=== PATIENT | female | born 1985 | race Caucasian/White ===

== ENCOUNTER 2025-01-03 06:58 | Outpatient (CLI) | payer OTHER, SELFPAY ==
--- NOTE | 2025-01-03 07:15 | CRLHL7_ITS ---
For Patients: As a result of the Century Cures Act, medical imaging exams and procedure reports are released immediately into your electronic medical record. You may view this report before your referring provider. If you have questions, please contact your health care provider. INDICATION: Dating and viability. TECHNIQUE: Ultrasound OB pelvis transabdominal and transvaginal. Real-time alvarado-scale imaging of the pelvis was performed. COMPARISON: None. FINDINGS: There is a single intrauterine gestation. The embryo demonstrates a regular cardiac rate measuring 178 beats per minute. The embryo`s crown rump length measurement of 2.8 cm corresponds to a gestational age of 9 weeks 4 days with a sonographic due date of 08/04/2025. There is a normal appearing yolk sac. There are no gross abnormalities noted within the embryo at this early state of development. The placenta has not yet developed. There is no sign of perigestational hemorrhage. The ovaries are of normal size. There are no suspicious fluid collections noted in the cul-de-sac. IMPRESSION: Single viable intrauterine measuring 9 weeks 4 days. No abnormalities seen. Dictated by Fredis Orosco MD @ 01/03/2025 11:53:36 AM (Electronically Signed)
== END 2025-01-03 06:59 | disposition home or self-care (01) ==
PROVIDERS: Visit Provider Advanced Practice Midwife
DX: Z34.91 Encounter for supervision of normal pregnancy, unspecified, first trimester (principal); Z3A.09 9 weeks gestation of pregnancy
CPT/HCPCS: 76801; 76817; T1013

== ENCOUNTER 2025-01-03 08:33 | Outpatient (CLI) | payer OTHER, SELFPAY ==
[2025-01-03 15:52] LABS: Chlamydia DNA Amplified* NOT DETECTED (No Detected); GC DNA Amplified* NOT DETECTED (No Detected)
== END 2025-01-03 08:34 | disposition home or self-care (01) ==
PROVIDERS: Visit Provider Advanced Practice Midwife
DX: O09.521 Supervision of elderly multigravida, first trimester (principal); Z3A.09 9 weeks gestation of pregnancy
CPT/HCPCS: 83020; 83021; 85660; 86592; 86703; 86704; 86706; 86762; 86787; 86803; 86850; 86900; 86901; 87086; 87340; 87491; 87591

== ENCOUNTER 2025-01-29 10:37 | Outpatient (CLI) | payer OTHER, SELFPAY | END 2025-01-29 10:38 | disposition home or self-care (01) | LOC: NFLDREF 02-02 07:39 | PROVIDERS: Visit Provider Obstetrics & Gynecology | DX: O99.891 Other specified diseases and conditions complicating pregnancy (principal); R82.71 Bacteriuria; O99.011 Anemia complicating pregnancy, first trimester; Z3A.12 12 weeks gestation of pregnancy | CPT/HCPCS: 87086 ==

== ENCOUNTER 2025-03-01 13:07 | Outpatient (CLI) | payer MEDICAID, SELFPAY | END 2025-03-01 13:08 | disposition home or self-care (01) | PROVIDERS: Visit Provider Obstetrics & Gynecology | DX: R82.71 Bacteriuria (principal); B96.20 Unspecified Escherichia coli [E. coli] as the cause of diseases classified elsewhere | CPT/HCPCS: 87086 ==

== ENCOUNTER 2025-03-14 10:13 | Outpatient (CLI) | payer OTHER, SELFPAY | END 2025-03-14 10:14 | disposition home or self-care (01) | LOC: US 10:13 | PROVIDERS: Visit Provider Obstetrics & Gynecology | DX: O09.522 Supervision of elderly multigravida, second trimester (principal); Z3A.19 19 weeks gestation of pregnancy | CPT/HCPCS: 76811; T1013 ==

== ENCOUNTER 2025-03-21 11:22 | Outpatient (CLI) | payer MEDICAID, SELFPAY | END 2025-03-21 11:23 | disposition home or self-care (01) | LOC: NFLDREF 03-23 15:18 | PROVIDERS: Visit Provider Obstetrics & Gynecology | DX: O99.891 Other specified diseases and conditions complicating pregnancy (principal); R82.71 Bacteriuria; Z3A.19 19 weeks gestation of pregnancy | CPT/HCPCS: 87086 ==

== ENCOUNTER 2025-04-11 13:50 | Outpatient (CLI) | payer MEDICAID, SELFPAY | END 2025-04-11 13:51 | disposition home or self-care (01) | LOC: NFLDREF 13:51 | PROVIDERS: Visit Provider Obstetrics & Gynecology | DX: Z34.92 Encounter for supervision of normal pregnancy, unspecified, second trimester (principal); Z3A.23 23 weeks gestation of pregnancy | CPT/HCPCS: 87086 ==

== ENCOUNTER 2025-05-16 09:05 | Outpatient (CLI) | payer MEDICAID, SELFPAY ==
--- NOTE | 2025-05-16 09:15 | CRLHL7_ITS ---
For Patients: As a result of the Century Cures Act, medical imaging exams and procedure reports are released immediately into your electronic medical record. You may view this report before your referring provider. If you have questions, please contact your health care provider. OB ULTRASOUND FOLLOW-UP/LIMITED, 05/16/2025 CLINICAL HISTORY: Marginal cord insertion. COMPARISON: 03/14/2025. TECHNIQUE: Real time alvarado scale imaging of the fetus was performed. Transabdominal imaging performed. FINDINGS: LMP: 10/31/2024. DARIANA by LMP: 08/07/2025. GA: 28 weeks 1 day. Sonographic age is 29 weeks 1 day. DARIANA 07/31/2025. Gestation: Single. Cervix: Not visualized, positioning: Vertex. Amniotic fluid: 25.6 cm FAISAL reflecting polyhydramnios. 8.6 cm SDP. Placenta: Technique: TA. Placenta position: Anterior. Dopplers: heart rate: 130 bpm . BIOMETRY: BPD: 7.2 cm, 29 weeks 1 day. 69% HC: 26.8 cm, 29 weeks 2 days. 53% AC: 26.7 cm, 30 weeks 6 days. >97% FL: 5.0 cm, 27 weeks 0 days. 11% FL/AC Ratio: 18.86% HC/AC Ratio: 1.00. EFW: 1379 g, 3 lb 1 oz. age by this US: 29 weeks 1 day. DARIANA by this US: 07/31/2025. Percentile by DARIANA: 82% IMPRESSION: 1. Single live intrauterine gestation at 29 weeks 1 day. DARIANA 07/31/2025. Estimated weight is 1379 grams which lies at the 82nd percentile. AC is at >97%. 2. Polyhydramnios with FAISAL of 25.6. Single deepest pocket 8.6 cm. Jaimie Larson M.D. Diagnostic/Breast Radiologist [email or web address] Transcribed: 2:22 pm DW/Dictated by: Jaimie Larson MD @ 05/18/2025 1:42:00 PM (Electronically Signed)
== END 2025-05-16 09:06 | disposition home or self-care (01) ==
LOC: US 09:05
PROVIDERS: Visit Provider Obstetrics & Gynecology
DX: O09.523 Supervision of elderly multigravida, third trimester (principal); O43.193 Other malformation of placenta, third trimester; O99.013 Anemia complicating pregnancy, third trimester; Z3A.28 28 weeks gestation of pregnancy
CPT/HCPCS: 76816; 82728; 86592; T1013

== ENCOUNTER 2025-05-16 09:25 | Outpatient (CLI) | payer MEDICAID, SELFPAY | END 2025-05-16 09:26 | disposition home or self-care (01) | LOC: NFLDREF 09:26 | PROVIDERS: Visit Provider Obstetrics & Gynecology | DX: O99.013 Anemia complicating pregnancy, third trimester (principal); O40.9XX0 Polyhydramnios, unspecified trimester, not applicable or unspecified; O09.529 Supervision of elderly multigravida, unspecified trimester; O43.193 Other malformation of placenta, third trimester; Z3A.28 28 weeks gestation of pregnancy | CPT/HCPCS: 82728; 86592 ==

== ENCOUNTER 2025-05-28 08:00 | Outpatient (RCR) | payer MEDICAID, SELFPAY ==
[2025-03-28 11:12] VITALS: BP 106/69; PULSE 93; TEMP 36.4; O2SAT 100
[2025-03-28] MEDS: SODIUM CHLORIDE 0.9 % (FLUSH) 10 ML SYRINGE IVF (11:50)
[2025-03-28] MEDS: cefTRIAXone 1 GM in 0.9 % SODIUM CHLORIDE Mini-bag 100 ML IVPB (11:53)
[2025-03-29 11:18] VITALS: BP 108/71; PULSE 89; TEMP 36.4; O2SAT 99
[2025-03-29] MEDS: cefTRIAXone 1 GM in 0.9 % SODIUM CHLORIDE Mini-bag 100 ML IVPB (11:47)
[2025-03-30 10:29] VITALS: BP 113/68; PULSE 93; TEMP 36; O2SAT 100
[2025-03-30] MEDS: cefTRIAXone 1 GM in 0.9 % SODIUM CHLORIDE Mini-bag 100 ML IVPB (10:55)
[2025-03-30] MEDS: SODIUM CHLORIDE 0.9 % (FLUSH) 10 ML SYRINGE IVF (10:55)
[2025-03-31] MEDS: cefTRIAXone 1 GM in 0.9 % SODIUM CHLORIDE Mini-bag 100 ML IVPB (11:19)
[2025-03-31 11:28] VITALS: BP 113/71; PULSE 94; RESP 16; O2SAT 98
--- NOTE | 2025-03-31 12:03 | PC.NURSE ---
IV started in right AC. Infusion complete without complication. Due to pt work pt request IV be removed after each infusion. IV DC'd, cath tip intact. Pt will return to m/s for infusion on 04/01 @0900. DC'd @ 1202
[2025-04-01] MEDS: cefTRIAXone 1 GM in 0.9 % SODIUM CHLORIDE Mini-bag 100 ML IVPB (09:38)
[2025-04-01] MEDS: SODIUM CHLORIDE 0.9 % (FLUSH) 10 ML SYRINGE IVF (09:39)
[2025-04-01 09:45] VITALS: BP 114/68; PULSE 78; RESP 18; TEMP 36.7
[2025-04-02] MEDS: SODIUM CHLORIDE 0.9 % (FLUSH) 10 ML SYRINGE IVF (09:38)
[2025-04-02 10:24] VITALS: BP 116/77; PULSE 90; RESP 16; TEMP 36.6; O2SAT 100
[2025-04-02] MEDS: cefTRIAXone 1 GM in 0.9 % SODIUM CHLORIDE Mini-bag 100 ML IVPB (11:01)
[2025-04-03 09:49] VITALS: BP 112/71; PULSE 99; RESP 17; TEMP 36.3; O2SAT 100
[2025-04-03] MEDS: cefTRIAXone 1 GM in 0.9 % SODIUM CHLORIDE Mini-bag 100 ML IVPB (10:01)
[2025-04-03] MEDS: SODIUM CHLORIDE 0.9 % (FLUSH) 10 ML SYRINGE IVF (10:01)
--- NOTE | 2025-05-17 11:55 | ONC.NURNOTE ---
Dx: Iron deficiency in anemia.
[2025-05-28 07:59] VITALS: BP 107/70; PULSE 100; RESP 18; TEMP 36.3; O2SAT 99
[2025-05-28] MEDS: SODIUM CHLORIDE 0.9 % (FLUSH) 10 ML SYRINGE IVF (08:35)
[2025-05-28] MEDS: IRON DEXTRAN COMPLEX 25 MG in 0.9 % SODIUM CHLORIDE 100 ml 100 ML 402 MG IVPB (08:38)
[2025-05-28 08:55] VITALS: BP 113/73; PULSE 97; RESP 18; O2SAT 100
[2025-05-28] MEDS: IRON DEXTRAN COMPLEX 975 MG in 0.9 % SODIUM CHLORIDE 250 ml 250 ML 270 MG IVPB (09:53)
[2025-05-28 11:33] VITALS: BP 115/74; PULSE 93; RESP 18; O2SAT 98
== END 2025-09-24 23:59 | disposition home or self-care (01) ==
LOC: CCIC 08:00
PROVIDERS: Visit Provider Clinical Nurse Specialist
DX: O99.013 Anemia complicating pregnancy, third trimester (principal); D50.9 Iron deficiency anemia, unspecified
CPT/HCPCS: 96365; G0463; T1013; J0696; J1750; J7050

== ENCOUNTER 2025-05-30 11:38 | Outpatient (CLI) | payer MEDICAID, SELFPAY ==
--- NOTE | 2025-05-30 11:45 | CRLHL7_ITS ---
For Patients: As a result of the Cures Act, medical imaging exams and procedure reports are released immediately into your electronic medical record. You may view this report before your referring provider. If you have questions, please contact your health care provider. OB ULTRASOUND BIOPHYSICAL PROFILE, 05/30/2025 CLINICAL HISTORY: Polyhydramnios. COMPARISON: 05/16/2025, 03/14/2025, 01/03/2025. TECHNIQUE: Real time alvarado scale imaging of the fetus was performed. Transabdominal imaging performed. FINDINGS: DARIANA by LMP: 08/07/2025. GA: 30 weeks 1 day. Cervix: Not visualized. Amniotic Fluid: 30.3 cm FAISAL. 11 cm SDP. BIOPHYSICAL PROFILE: Gross Body Movements: 2 Tone: 2 Respiratory activity: 2 Amniotic Fluid SDP: 2 Total Score: 8 Placenta: Technique: TA. Placenta Position: Anterior. Dopplers: Heart Rate: 142 bpm. IMPRESSION: Normal biophysical profile score of 8/8. Sahil Borrego M.D. Diagnostic Radiologist [email or web address] Transcribed: 12:34 pm DW/Dictated by: Sahil Borrego MD @ 05/30/2025 12:22:00 PM (Electronically Signed)
== END 2025-05-30 11:39 | disposition home or self-care (01) ==
LOC: US 11:38
PROVIDERS: Visit Provider Obstetrics & Gynecology
DX: O40.3XX0 Polyhydramnios, third trimester, not applicable or unspecified (principal); Z3A.30 30 weeks gestation of pregnancy
CPT/HCPCS: 76819; T1013

== ENCOUNTER 2025-06-12 09:06 | Outpatient (CLI) | payer MEDICAID, SELFPAY ==
--- NOTE | 2025-06-12 09:15 | CRLHL7_ITS ---
For Patients: As a result of the Century Cures Act, medical imaging exams and procedure reports are released immediately into your electronic medical record. You may view this report before your referring provider. If you have questions, please contact your health care provider. OB ULTRASOUND BIOPHYSICAL PROFILE TRANSABDOMINAL LMP: 10/31/2024. DARIANA by LMP: 08/07/2025. GA: 32 w, 0 d. Single. Comparison: 05/30/2025. INDICATION: Polyhydramnios, marginal cord insertion. TECHNIQUE: Real time alvarado scale imaging of the fetus was performed. Transabdominal imaging performed. CERVIX: Not visualized. POSITIONING: Vertex. AMNIOTIC FLUID: 25.5 cm. FAISAL. 8.6 cm SDP (N: greater than 2 x 1 cm) BIOPHYSICAL PROFILE: Gross body movements: 2. tone: 2. Respiratory activity: 2. Amniotic fluid: 2. SDP (N: greater than 2 x 1 cm). Total score: 8. PLACENTA: Technique: Transabdominal. PLACENTA POSITION: Anterior, left wall. DOPPLER: heart rate: 141 bpm. IMPRESSION: 1. Biophysical profile 88. 2. Amniotic fluid single deepest pocket 8.6 cm. FAISAL 25.5 cm. Sahil Borrego M.D. Diagnostic Radiologist [email or web address] SP/Dictated by: Sahil Borrego MD @ 06/13/2025 5:25:00 PM (Electronically Signed)
== END 2025-06-12 09:07 | disposition home or self-care (01) ==
LOC: US 09:07
PROVIDERS: Visit Provider Obstetrics & Gynecology
DX: O40.3XX0 Polyhydramnios, third trimester, not applicable or unspecified (principal); O43.193 Other malformation of placenta, third trimester; O09.523 Supervision of elderly multigravida, third trimester; Z3A.32 32 weeks gestation of pregnancy
CPT/HCPCS: 76819; T1013

== ENCOUNTER 2025-06-27 10:45 | Outpatient (CLI) | payer MEDICAID, SELFPAY | END 2025-06-27 10:46 | disposition home or self-care (01) | LOC: NFLDREF 07-02 21:12 | PROVIDERS: Visit Provider Obstetrics & Gynecology | DX: O99.013 Anemia complicating pregnancy, third trimester (principal); O09.523 Supervision of elderly multigravida, third trimester; O36.63X0 Maternal care for excessive fetal growth, third trimester, not applicable or unspecified; Z3A.36 36 weeks gestation of pregnancy | CPT/HCPCS: 76816; 76819; 82728; T1013 ==

== ENCOUNTER 2025-07-11 10:26 | Outpatient (CLI) | payer MEDICAID, SELFPAY | END 2025-07-11 10:27 | disposition home or self-care (01) | LOC: NFLDREF 07-17 16:19 | PROVIDERS: Visit Provider Obstetrics & Gynecology | DX: O99.013 Anemia complicating pregnancy, third trimester (principal) | CPT/HCPCS: 76819; 82728; 87081; 87653; T1013 ==

== ENCOUNTER 2025-07-18 10:04 | Outpatient (CLI) | payer MEDICAID, SELFPAY ==
--- NOTE | 2025-07-18 10:15 | CRLHL7_ITS ---
For Patients: As a result of the Cures Act, medical imaging exams and procedure reports are released immediately into your electronic medical record. You may view this report before your referring provider. If you have questions, please contact your health care provider. OBSTETRICAL ULTRASOUND ??? BIOPHYSICAL PROFILE, 07/18/2025 INDICATION: Advance maternal age and history of mild polyhydramnios. CLINICAL HISTORY: LMP: 10/31/2024 DARIANA by LMP: 08/07/2025 Gestational Age: 37 weeks 1 day PRIOR ULTRASOUND: 07/11/2025, 06/27/2025, 06/12/2025. TECHNIQUE: Real-time alvarado-scale transabdominal imaging of the fetus was performed. FINDINGS: Fetus: Single Cervix: Not visualized positioning: Vertex Amniotic Fluid: FAISAL: 21.2 cm 6.5 cm SDP BIOPHYSICAL PROFILE: Gross body movements: 2 tone: 2 Respiratory activity: 2 Amniotic fluid SDP: 2 Total score: 8 Placenta technique: Transabdominal Placenta position: Anterior, left wall heart rate: 130 bpm IMPRESSION: 1. Normal biophysical profile score of 8/8. 2. Amniotic fluid single deepest pocket is 6.5 cm. FAISAL is 21.2 cm. 3. Umbilical cord knot is noted. SAHIL MYERS M.D. Diagnostic Radiologist [email or web address] Transcribed: 4:[address]/Dictated by: Sahil Myers MD @ 07/18/2025 3:08:00 PM (Electronically Signed)
== END 2025-07-18 10:05 | disposition home or self-care (01) ==
LOC: US 10:05
PROVIDERS: Visit Provider Obstetrics & Gynecology
DX: O09.523 Supervision of elderly multigravida, third trimester (principal); O40.3XX0 Polyhydramnios, third trimester, not applicable or unspecified; Z3A.37 37 weeks gestation of pregnancy
CPT/HCPCS: 76819; T1013

== ENCOUNTER 2025-07-26 05:56 | Inpatient (IN) | payer MEDICAID, SELFPAY ==
[2025-07-26] VITALS (16 sets, daily range): BP systolic 91–122; BP diastolic 35–75; PULSE 74–94; RESP 16–20; TEMP 36.5–36.6; O2SAT 95–99
[2025-07-26 06:53] LABS: Hemoglobin* 9.7 gm/dL (12.0-16.0)
[2025-07-26] MEDS: LACTATED RINGERS 1000 ML 1,000 ML IV (07:01)
--- NOTE | 2025-07-26 07:06 | P.LDBA_ITS ---
Subjective History of Present Illness Date Seen: 07/26/25 Narrative: Patient is being admitted to Labor and Delivery for repeat . She is a 39 year old at 38 2/7 weeks gestation. Her full history and physical was dictated by Dr. Carpio on 07/11/25. Please see this for details. Specific Issues/Plans Partner: Mara Richmond Son: Ed Daughter: Leda Baby: Boy! H&P done by Dr. Carpio on 07/11/25. Consent done on 07/18/25. #Mild polyhydramnios * 05/16/25 FAISAL 25.6. SDP 8.6cm. EFW: 82%, AC >97%. * Repeat FAISAL w/ bpp in Q2 weeks * Growth A1nerre #Anemia * Hgb 10.7 on 01/03/25-recommended iron in PNV and iron rich foods * Prescribed vitron C on 01/29/25 QOD w/ food. The patient is on gummie vitamins that do not contain iron. Patient intolerant of oral iron due to constipation. * 28 wk hgb: 7.7 * s/p Iron infusion therapy. * Hgb at 34 weeks: 9.6 # Marginal cord insertion * Placental location, cord insertion site and EFW at 28 wks (05/16/25) and 34 wks (06/27/25). testing form completed 03/15/25. * If cord insertion becomes velamentous then EFW Q4 weeks. # Advanced maternal age?- 39 years old at delivery? Genetic Screening: NIPT with gender: low risk for aneuploidy, boy ? 20-week Level II detailed ultrasound with MFM: 03/14/2025? Weekly testing starting at 36 weeks. Scheduled. ? Delivery will be at 38+ weeks by RLTCS due to window in the LALA @ her 2nd .? #Asymptomatic Bacteruria at NOB 01/03/25: UCx >100,000 cfu/mL e. coli: resistant to ampicillin, cefazolin and bactrim. Tx'd with Macrobid bid for 7days. -STEVE 01/29/25 (12 weeks)- e. coli >100,000 cfu/mL: resistent to ampicillin, cefazolin and bactrim. Tx's w/ macrobid 100mg PO BID for 7 days. -STEVE at 16wks 03/01/25: > 100 CFU of 2 strains of E. coli one resistant to Bactrim, ampicillin and cefozolin the other intermediately responsive to amp, cefozolin - Tx with TMP-SMX -STEVE 03/21 (19 wks): > 100,000 cfu/mL e. coli. Resistent to ampicillin, cef azolin and bactrim. Treated with 7 days of IV ceftriaxone Q24hr at the infusion center. 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 * Urologic removal after her 2nd child # BMI 35.8 at NOB * 01/03/25 hgb A1C 5.5% * 05/16/25 1hr gtt 107 Imagin. 03/14/25 Lvl 2: Variable presentation, 3 vessel cord. SDP 5.1cm Marginal cord insertion. Normal anatomic survey. EFW: 330g, 12 oz, 92%. US for placenta, cord insertion and EFW at 28 and 34 weeks: if cord insertion becomes velamentous then EFW Q4 weeks. 2. 05/16/2025: Vertex presentation, EFW 1379 g or 3 lb 1 oz (82%), BPD 69%, HC 53%, AC >97%, FL 11%, SDP 8.6 cm, FAISAL 25.6 cm. 3. 06/27/25: Vertex, EFW: 2704 g, 83 percentile. BPD: 67 percentile, HC: 83rd percentile, AC: More than the 97th percentile, FL: 11.2 percentile. FAISAL: 25.5, SDP: 8.9 cm. Immunizations COVID: declined Flu: declined. TDAP: 05/30/25 RSV: 06/27/25 H&P: 07/11/[address] Carpio GBS negative 32wk Mental Health: 34wk Hgb: as above OB - Problem Based A/P Additional Plan (1) Previous delivery affecting : Status: Acute Delivery/Labor/Induction Plan Plan: Section OB Exam Physical Exam Vital signs: Temp Pulse Resp BP Pulse Ox 97.8 F 84 16 118/75 99 07/26/25 06:49 07/26/25 06:49 07/26/25 06:49 07/26/25 06:49 07/26/25 06:59
--- NOTE | 2025-07-26 08:11 | SUR.OPER ---
PATIENT QUESTIONS ANSWERED SATISFACTORILY PREOPERATIVELY. PATIENT BROUGHT TO OR #5 PER AMBULATION BY OB RN. Patient positioned supine on OR #5 bed. ? Final approval of positioning by surgeon. SURGEON DECLINES AN OFFER TO SEND THE PLACENTA TO PATHOLOGY.
[2025-07-26] MEDS: OXYTOCIN 30 unit/500 ML in NS 30 UNIT/500 ML BAG 300 UNIT IVPB (09:10)
[2025-07-26] MEDS: LACTATED RINGERS 1000 ML 1,000 ML 125 ML IV (10:00)
--- NOTE | 2025-07-26 10:28 | P.ANES_ITS ---
Anesthesia Charges Start Date/Time Anesthesia Start Date: 07/26/25 Anesthesia Start Time: 07:19 Stop Date/Time Anesthesia Stop Date: 07/26/25 Anesthesia Stop Time: 09:09 Coding CPT Codes CPT Codes: ANESTH CS DELIVERY - 75114 ([id number]) P3 - PATIENT W/SEVERE SYS DISEASE, QK - MEDICAL RECORDS CUSTODIAN 2-4 CNCRNT ANES PROC, QX - REGISTERED NURSE SURGICAL SERVICES SVC W/ MD MED DIRECTION
--- NOTE | 2025-07-26 10:28 | W.ANESCHARGE ---
Anesthesia Charges Start Date/Time Anesthesia Start Date: 07/26/25 Anesthesia Start Time: 07:19 Stop Date/Time Anesthesia Stop Date: 07/26/25 Anesthesia Stop Time: 09:09 Coding CPT Codes CPT Codes: ANESTH CS DELIVERY - 06643 ([id number]) P3 - PATIENT W/SEVERE SYS DISEASE, QK - DISABILITY PROGRAM NAVIGATOR 2-4 CNCRNT ANES PROC, QX - PHOTOGRAPHY INSTRUCTOR SVC W/ MD MED DIRECTION
[2025-07-26] MEDS: ACETAMINOPHEN 500 MG TABLET 1000 MG PO ×3 (11:32→23:07)
--- NOTE | 2025-07-26 15:43 | P.GYNPRC_ITS ---
Procedure Note Date of procedure: 07/26/25 Will [facility] bill your pro fee for this procedure?: Yes Pre-op diagnosis: 38 2/7 weeks' gestation Two previous deliveries Post-op diagnosis: Extensive intraabdominal adhesions Otherwise as above Procedure: Repeat delivery Extensive lysis of adhesions Anesthesia: spinal Complications: none Surgeon: Linda Rosario MD Estimated blood loss (mL): 642 IV fluids (mL): 1,300 Urine Output (mL): 50 Pathology: none sent Condition: stable Disposition: floor Findings: 1. Male , cephalic presentation, Apgars 8 & 9, weight 3580 g = 7# 14 oz. 2. Extensive adhesions of anterior fundal uterine serosa to anterior abdominal wall, extending the entire width of the anterior fundus between the round ligaments and involving the right round ligament. Omental adhesions to the left broad ligament. Otherwise normal appearance of bilateral tubes and ovaries. Procedure Description: PROCEDURE IN DETAIL: Patient was taken to the operating room with IV running. She received cefazolin in preoperative prophylaxis. Spinal anesthesia was administered. Meléndez catheter was inserted. She was prepped and draped in the usual sterile fashion. Anesthesia was tested and found to be adequate. A low-transverse skin incision was made with a scalpel and carried through to the underlying layer of fascia with the scalpel. The subcutaneous fat was dissected off the underlying fascia with scalpel. This layer was thickened and scarred. The fascia was nicked in the midline with a scalpel, and this incision was extended laterally with scissors. The fascia was dissected off the underlying rectus superiorly with Bovie. The rectus muscles were in the midline. Peritoneum was identified and entered bluntly. It was obvious that there were some serosal adhesions to the anterior abdominal wall; I was unable to pass my hand to the uterine fundus because of this. The peritoneal opening was broadened laterally with Bovie. I was manually able to explore near the left round ligament and enter the peritoneal space above this manually. Thereafter, moving from the patient's left to right, I slowly lysed the serosal adhesions to the anterior abdominal wall, bringing each portion to the laparotomy and assure it was free of intestine prior to lysis with Bovie. This process took approximately 30 minutes. Upon reaching the right round ligament, I was then ableo to pass my hand over the fundus. The Gary O retractor was inserted and tightened down, providing excellent visualization of the lower uterine segment. The bladder reflection was found to be well below the planned site for hysterotomy. Low-transverse uterine incision was made with a scalpel. Incision was widened bluntly. The infant's head was grasped through the hysterotomy and delivered with the help of fundal pressure. The remainder of the body delivered without incident. Cord was clamped and cut after 30 seconds. was handed off to attending nurses. The placenta was delivered with gentle traction on the cord. The uterus was cleaned of all clots and debris with the dry lap pad. I did initially exteriorize the uterus, but the omental adhesions and remaining adhesions of the right broad ligament made positioning of the uterus difficulty, and it was returned to the abdomen after confirming that the adnexa normal in appearance. The cul-de-sac was also cleansed of clots with a lap pad prior to returning the uterus to the abdomen. The hysterotomy was reapproximated with 0 Vicryl in a running, locked fashion. Second layer of the same suture was used in imbricatin g fashion in the middle and right aspects of the incision to obtain hemostasis. Additional [id number] sutures and Bovie were required to achieve hemostasis. The gutters were cleansed with laparotomy sponge, removing any further clots and debris. The Gary O retractor was removed. The hysterotomy was reexamined and found to be hemostatic. The peritoneum was too disrupted to allow reapp roximation. The rectus muscles were examined and found to be hemostatic. The fascia was reapproximated with 0 Vicryl in a running fashion. Subcutaneous fat was irrigated and Bovie used on oozing vessels. The subcutaneous fat was reapproximated with 2 0 plain gut suture in an interrupted fashion. The skin was closed with a subcuticular stitch of 4-0 Monocryl. Surgical glue was applied above this. Patient tolerated procedure well was taken to recovery area in stable condition.
[2025-07-27 03:16] VITALS: BP 94/60; PULSE 84; RESP 18; TEMP 36.7; O2SAT 95
[2025-07-27 06:17] LABS: Hemoglobin* 8.9 gm/dL (12.0-16.0)
[2025-07-27] MEDS: ACETAMINOPHEN 500 MG TABLET 1000 MG PO ×3 (06:39→18:06)
[2025-07-27 07:50] VITALS: BP 101/67; PULSE 81; RESP 16; O2SAT 97
--- NOTE | 2025-07-27 07:55 | P.ANES_ITS ---
Anesthesia Charges Start Date/Time Anesthesia Start Date: 07/26/25 Anesthesia Start Time: 07:19 Stop Date/Time Anesthesia Stop Date: 07/26/25 Anesthesia Stop Time: 09:09 Coding CPT Codes CPT Codes: ANESTH CS DELIVERY - 30446 ([id number]) P3 - PATIENT W/SEVERE SYS DISEASE, QK - EMPLOYEE SERVICES MANAGER 2-4 CNCRNT ANES PROC, QX - FOCUSING MACHINE OPERATOR SVC W/ MD MED DIRECTION
--- NOTE | 2025-07-27 07:55 | W.ANESCHARGE ---
Anesthesia Charges Start Date/Time Anesthesia Start Date: 07/26/25 Anesthesia Start Time: 07:19 Stop Date/Time Anesthesia Stop Date: 07/26/25 Anesthesia Stop Time: 09:09 Coding CPT Codes CPT Codes: ANESTH CS DELIVERY - 35490 ([id number]) P3 - PATIENT W/SEVERE SYS DISEASE, QK - LAND SALES AGENT 2-4 CNCRNT ANES PROC, QX - GLASS BLOWING LATHE OPERATOR SVC W/ MD MED DIRECTION
--- NOTE | 2025-07-27 07:56 | P.NB_ITS ---
Nerve Block Nerve Block Time Seen by Provider: 09:00 Date Seen: 07/26/25 Type of block requested by surgeon for post-operative analgesia: TAP Side: bilateral Time out performed: Yes Verification of patient name: Yes Verification of date of : Yes Site marking: site marked Name of person performing procedure: yovany Assistants, if any: KENY SUTTON Continuous monitoring Was continuous monitoring of O2 sat, B/P, project development engineer, recorded every 15 minutes?: Yes Procedure Checklist: sterile prep and needles Ultrasound guided. Images saved: Yes Medications given in 5ml increments after negative aspiration: Marcaine %: 0.25 mL: 30 and Exparel mL: 10 Block Charges Block Charge (with Pro Fee): TAP Bilateral Use of Ultrasound Machine for Block: Yes- US Guidance/pain block
--- NOTE | 2025-07-27 08:08 | PM.OBPNVD1 ---
OB - PN:Subj Subjective Date Seen: 07/27/25 Narrative: Lisandra is a 39 y.o. who was admitted to L & D for repeat .? She had an uncomplicated repeat .? ? The patient feels well.? The pain is well controlled with current medications, she has been utilizing scheduled medications and 10mg oxycodone for pain.? She has no new complaints.? She is breast feeding and reports things are going well, she supplemented once with formula by her choice.? the patient has done well.? Vitals have been stable.? She has remained afebrile.? Has a good appetite, is tolerating a general diet.? She is voiding without difficulty.? She is passing gas and has not had a bowel movement.? She is ambulating and denies any dizziness.? Has Small amount of rubra lochia.? OB - PN: Obj Exam Physical Exam: Vital signs: Temp Pulse Resp BP Pulse Ox O2 Del Method 98.0 F 81 16 101/67 97 Room Air 07/27/25 03:16 07/27/25 07:50 07/27/25 07:50 07/27/25 07:50 07/27/25 07:50 07/27/25 07:50 Narrative: GENERAL APPEARANCE:? normal affect, alert, no distress MOOD:? appropriate CHEST:? clear to auscultation HEART:? regular rate and rhythm ABDOMEN:? soft, non-tender the uterine fundus is firm At Umbilicus, Midline and is appropriate for the stage of recovery. PERINEUM:? intact EXTREMITIES:? normal and 1+ edema Incision: Healing well, no surrounding erythema, abnormal induration or discharge OB - PN: Obj Data Labs Labs: Laboratory Results - last 24 hr 07/26/25 07/27/25 06:45 06:05 Hgb 8.9 L Blood Type O Positive Antibody Screen NEGATIVE OB - PN: A/P Delivery Assessment and Plan (1) care following delivery: Status: Acute (2) Lactating mother: Status: Acute Plan day: 1 Plan: routine care Comments: Assessment/Plan?G 3 P 2 status post uncomplicated repeat .? ?? 1.? Continue route PP cares? 2.? .? May see if desired? 3.? Anticipate discharge home tomorrow or the following day per pt preference? ?
[2025-07-27] MEDS: DOCUSATE SODIUM 100 MG CAPSULE PO (08:32)
[2025-07-27] MEDS: IRON SUCROSE COMPLEX 200 MG in 0.9 % SODIUM CHLORIDE 100 ml 100 ML 440 MG IVPB (09:19)
[2025-07-27 13:54] VITALS: BP 121/80; PULSE 91; RESP 16; TEMP 36.4; O2SAT 99
[2025-07-27] MEDS: IBUPROFEN 600 MG TABLET PO (20:53)
[2025-07-27 22:06] VITALS: BP 94/61; PULSE 97; RESP 20; TEMP 37; O2SAT 95
[2025-07-28] MEDS: ACETAMINOPHEN 500 MG TABLET 1000 MG PO ×2 (02:38→10:43)
[2025-07-28] MEDS: IBUPROFEN 600 MG TABLET PO (05:58)
[2025-07-28 06:18] VITALS: BP 105/67; PULSE 84; RESP 16; TEMP 36.4; O2SAT 98
[2025-07-28] MEDS: DOCUSATE SODIUM 100 MG CAPSULE PO (07:32)
[2025-07-28] MEDS: SIMETHICONE 80 MG TAB.CHEW PO (07:32)
[2025-07-28 07:40] VITALS: BP 95/67; PULSE 84; RESP 16; TEMP 36.8; O2SAT 98
--- NOTE | 2025-07-28 07:53 | P.DS_ITS ---
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 Mild tenderness to palpation in the lower quadrants, consistent with postoperative state. No rebound or guarding. Fundus palpates firm at umbilicus. Incision is clean, dry and well approximated with surgical glue noted. No erythema, ecchymosis or drainage. Extremities: Trace bilateral edema. No calf erythema, tenderness, swelling. Const: Vital Signs, click to edit/add: Vital Signs - 24 hr 07/27/25 13:54 07/27/25 22:06 07/28/25 06:18 Temperature 97.5 F L 98.6 F 97.6 F Pulse Rate [Pulse Oximeter] 91 97 84 Respiratory Rate 16 20 16 Blood Pressure [Ri ght Arm] 121/80 94/61 105/67 Pulse Oximetry 99 95 98 Oxygen Delivery Me thod Room Air Room Air Room Air OB - DS: Summary Hospital Course Hospital Course: The patient is a 39 year old G 3 P 2 at 38 weeks gestation that was admitted to the Center on 07/26/25 for repeat . was complicated by polyhydramnios, AMA, 2 prior deliveries (complicated by window), marginal cord insertion, anemia. She had an uncomplicated repeat delivery. She delivered a viable male infant. She is breast feeding. the patient has done well. Patient had signs of symptomatic anemia postoperatively, where postop day 1 hemoglobin was 8.9 from 9.7 preop. She received IV iron on postop day 1. Patient notes her pain is well controlled, on a regimen of NSAIDs, Tylenol and oxycodone (5-10 mg q.4h p.r.n.). She is tolerating p.o. intake without nausea or vomiting. Ambulates with some increased pain, where at times she will note dizziness and nausea particularly when ambulating from after using the restroom. No dizziness/lightheadedness at rest, denies chest pain or dyspnea. Repeat Hgb was found to be stable at 9.1 (from 8.9) this AM. Lochia is described as small volume. Voiding spontaneously, passing flatus, small BM x1. Denies any significant lower extremity edema, calf pain or erythema. Patient notes bonding and feeding baby are going well. Peripartum Data delivery method: Repeat Section Procedures: Procedures Operation Date: 07/26/25 07:15 Actual Procedure Side Surgeon p Repeat Section, LYSIS OF ADHESIONS Linda Rosario MD Infant Gender: Male Time Spent with Patient Time attestation: Total time spent providing and/or coordinating discharge services: Time spent: Greater than 30 minutes Discharge Plan Discharge Disposition: Home, Self-Care Date of Admission: 07/26/25 05:56 Primary Care Provider: Provider,Not a Local Condition: Stable Anticipated Discharge Date/Time: 07/28/25 07:57 Discharge Medications: New oxycodone 5 mg Tablet 5 mg PO Q6H PRN (Reason: Pain) Qty: 15 0RF acetaminophen 500 mg Tablet 1,000 mg PO Q6H PRN (Reason: Pain) Qty: 120 0RF ibuprofen 200 mg capsule 600 mg PO Q6H PRN (Reason: Pain) Qty: 180 0RF Rx Instructions: Ok to substitute with ibuprofen 200mg tablets Continued Classic 28 mg iron- 800 mcg tablet 1 tab PO QDAY docusate sodium 100 mg tablet 100 mg PO BID Qty: 30 3RF Discharge Orders: Discharge Order (Routine); Ordered 07/28/25 Ordered By: Kristie Mancuso Patient Education: OB /Breast Feeding Additional Instructions: Discharge instructions were reviewed with the patient including signs and symptoms of infection and home going medications Lifting Restrictions: 20 pounds for 6 weeks No not submerge incision under water X 2 weeks? Nothing vaginally for 6 weeks: no tampons or intercourse Do not drive while taking narcotic pain medication(s) Off Work or School for 8 weeks Symptoms to report to doctor: * Bleeding that saturates more than one pad per hour * Passing clots larger than the size of a golf ball * Pain not relieved by prescribed medication * Fever above 100.4 degrees Fahrenheit * A foul vaginal odor * Difficulty in emotions, mood, and functions * Thoughts of hurting yourself and/or * Painful, reddened area in your breast * Any drainage, redness, or tenderness in your IV/epidural site * Severe headache that doesn't improve after taking medications * Changes in vision, including temporary loss of vision, blurred vision, and/or light sensitivity * Upper abdominal pain (usually under ribs on the right side) * Decrease in urination or painful, frequent urinating * Chest pain * Shortness of breath * Tenderness or pain with redness and/swelling in the calf(s) of your leg Optional 2-week visit: incision check, discuss infant feeding concerns, review control options and screen for anxiety/depression. 6-week visit for an annual exam. consultation services are available to all mothers and babies for the first year after delivery.? To make an appointment, please call [phone]. Follow Up Appointments: Provider,Not a Local [Primary Care Provider, Family Practice] Forms: Patient Belongings, MyHealth Info Instructions
[2025-07-28 09:32] LABS: Hematocrit* 28.3 % (33.0-51.0); Hemoglobin* 9.1 gm/dL (12.0-16.0); Immature Granulocytes Abs Auto 0.11 K/uL (0.00-0.30); Immature Granulocytes Pct Auto 1.2 %; Mean Corpuscular HGB Conc 32 gm/dL (32-36); Mean Corpuscular Hemoglobin 28 pg (26-34); Mean Corpuscular Volume 86 fL (80-100); RDW Coefficient of Variation % 22.9 % (11.5-15.5); Red Blood Count* 3.30 m/uL (4.00-5.20); White Blood Count* 9.50 K/uL (4.50-11.00)
[2025-07-28 09:36] LABS: Lymphocytes Absolute Auto 1.20 K/uL (0.90-2.90); Slide Review Reflex No
== END 2025-07-28 11:10 | disposition home or self-care (01) | DRG 788 ==
PROVIDERS: Obstetrics & Gynecology; Admitting Provider Obstetrics & Gynecology; Visit Provider Obstetrics & Gynecology
PROC: 10D00Z1 Extraction of Products of Conception, Low, Open Approach (ICD-10-PCS; CPT 59514; principal; 2025-07-26 07:15)
DX: O34.211 Maternal care for low transverse scar from previous cesarean delivery (principal); O40.3XX0 Polyhydramnios, third trimester, not applicable or unspecified; G89.18 Other acute postprocedural pain; O99.892 Other specified diseases and conditions complicating childbirth; N73.6 Female pelvic peritoneal adhesions (postinfective); O99.02 Anemia complicating childbirth; D64.9 Anemia, unspecified; Z3A.38 38 weeks gestation of pregnancy; Z37.0 Single live birth
CPT/HCPCS: 01961; 36415; 64488; 76942; 85018; 85025; 86592; 86850; 86900; 86901; T1013; A4314; A9270; J1100; J1756; J1885; J2371; J2405; J2590; J7120